=== PATIENT | female | born 1980 | race Caucasian/White ===

== ENCOUNTER 2019-01-19 07:34 | Observation (INO) | payer OTHER ==
[~2019-01-19] VITALS: Ht 162.6 cm; Wt 83.6 kg
[2019-01-19] MEDS ORDERED: PLEASE ENTER ALLERGIES MC SCH (08:00)
[2019-01-19] MEDS ORDERED: BETAMETHASONE 6 MG/ML, 5ML IM ONE ×2 (08:00→08:27)
[2019-01-19 08:05] LABS: CREATININE,URINE RANDOM 52.3 mg/dL
[2019-01-19 08:07] LABS: BASOPHILS # (AUTO) 0.03 x10^3/uL (0-0.1); BASOPHILS % (AUTO) 1 % (0-1); EOSINOPHILS # (AUTO) 0.04 x10^3/uL (0-0.4); EOSINOPHILS % (AUTO) 1 % (1-7); LYMPHOCYTES # (AUTO) 1.16 x10^3/uL (1-3.4); LYMPHOCYTES % (AUTO) 19 % (22-44); MD NO; MEAN CORPUSCULAR HEMOGLOBIN 33.6 pg (27.0-34.8); MEAN CORPUSCULAR HGB CONC 33.8 g/dL (32.4-35.8); MEAN CORPUSCULAR VOLUME 99.5 fL (80-100); MONOCYTES # (AUTO) 0.42 x10^3/uL (0.2-0.8); MONOCYTES % (AUTO) 7 % (2-9); NEUTROPHILS # (AUTO) 4.35 x10^3/uL (1.8-6.8); NEUTROPHILS % (AUTO) 73 % (42-75); PLATELET COUNT 192 x10^3/uL (130-400); RED BLOOD COUNT 3.79 x10^6/uL (3.82-5.3); RED CELL DISTRIBUTION WIDTH 13.8 % (9.6-15.2)
[2019-01-19 08:19] LABS: ALANINE AMINOTRANSFERASE 15 U/L (12-78); ALBUMIN 2.3 g/dL (3.4-5.0); ANION GAP 10 mmol/L (5-15); CALCIUM 8.3 mg/dL (8.5-10.1); CHLORIDE 110 mmol/L (98-107)
[2019-01-19 08:22] LABS: ALKALINE PHOSPHATASE 119 U/L (45-117); BILIRUBIN,TOTAL 0.4 mg/dL (0.2-1.0); TOTAL PROTEIN 5.8 g/dL (6.4-8.2)
[2019-01-19] MEDS ORDERED: ACETAMINOPHEN 325 MG TABLET ONE ×2 (11:13→18:14)
[2019-01-19] MEDS: ACETAMINOPHEN 325 MG TABLET PO PRN ×2 (11:16→18:15)
[2019-01-19 12:43] VITALS: BP 140/99
[2019-01-19] MEDS ORDERED: LABETALOL 100 MG TABLET ONE (13:23)
[2019-01-19] MEDS ORDERED: LABETALOL 100 MG TABLET PO SCH ×3 (14:00→22:00)
[2019-01-19] MEDS ORDERED: CALCIUM CARBONATE 500 MG TAB.CHEW ONE ×2 (14:52→23:06)
[2019-01-19] MEDS: CALCIUM CARBONATE 500 MG TAB.CHEW PO PRN ×2 (14:54→23:07)
[2019-01-19 17:20] VITALS: BP 129/95
[2019-01-19] MEDS: PRENATAL VIT/IRON/FA 1 EACH TABLET HOMEMEDPO SCH (21:00)
[2019-01-19] MEDS ORDERED: LABETALOL 200 MG TABLET ONE (21:44)
[2019-01-19] MEDS: LABETALOL 200 MG TABLET PO SCH (21:49)
[2019-01-19] MEDS ORDERED: DIPHENHYDRAMINE 25 MG CAPSULE PO PRN (22:00)
[2019-01-19] MEDS ORDERED: DIPHENHYDRAMINE 25 MG CAPSULE ONE (22:56)
[2019-01-19 23:01] VITALS: BP 150/98
[2019-01-20] MEDS ORDERED: LABETALOL 200 MG TABLET ONE ×3 (05:57→21:38)
[2019-01-20] MEDS: LABETALOL 200 MG TABLET PO SCH ×3 (06:01→21:39)
[2019-01-20] MEDS ORDERED: BETAMETHASONE 6 MG/ML, 5ML IM SCH (08:30)
[2019-01-20] MEDS: PRENATAL VIT/IRON/FA 1 EACH TABLET HOMEMEDPO SCH (09:00)
[2019-01-20] MEDS ORDERED: DIPHENHYDRAMINE 25 MG CAPSULE ONE ×2 (22:09→22:13)
[2019-01-20] MEDS ORDERED: DIPHENHYDRAMINE 25 MG CAPSULE PO PRN (22:30)
[2019-01-21] MEDS ORDERED: CALCIUM CARBONATE 500 MG TAB.CHEW ONE (02:21)
[2019-01-21] MEDS: CALCIUM CARBONATE 500 MG TAB.CHEW PO PRN (02:27)
[2019-01-21] MEDS ORDERED: LABETALOL 200 MG TABLET ONE (06:39)
[2019-01-21] MEDS: LABETALOL 200 MG TABLET PO SCH (06:40)
[2019-01-21 07:38] LABS: BASOPHILS # (AUTO) 0.02 x10^3/uL (0-0.1); BASOPHILS % (AUTO) 0 % (0-1); EOSINOPHILS % (AUTO) 0 % (1-7); LYMPHOCYTES # (AUTO) 0.95 x10^3/uL (1-3.4); LYMPHOCYTES % (AUTO) 10 % (22-44); MD NO; MEAN CORPUSCULAR HEMOGLOBIN 33.5 pg (27.0-34.8); MEAN CORPUSCULAR HGB CONC 33.5 g/dL (32.4-35.8); MEAN CORPUSCULAR VOLUME 100.1 fL (80-100); MONOCYTES % (AUTO) 7 % (2-9); NEUTROPHILS # (AUTO) 7.95 x10^3/uL (1.8-6.8); NEUTROPHILS % (AUTO) 83 % (42-75); PLATELET COUNT 219 x10^3/uL (130-400); RED BLOOD COUNT 3.61 x10^6/uL (3.82-5.3); RED CELL DISTRIBUTION WIDTH 13.8 % (9.6-15.2)
[2019-01-21 07:40] LABS: ALBUMIN 2.5 g/dL (3.4-5.0); ANION GAP 12 mmol/L (5-15); CALCIUM 8.5 mg/dL (8.5-10.1); CHLORIDE 110 mmol/L (98-107)
[2019-01-21 07:44] LABS: ALANINE AMINOTRANSFERASE 17 U/L (12-78); ALKALINE PHOSPHATASE 119 U/L (45-117); BILIRUBIN, DIRECT < 0.1 mg/dL (0.1-0.2); BILIRUBIN,TOTAL 0.3 mg/dL (0.2-1.0); CREATININE 0.74 mg/dL (0.55-1.02); TOTAL PROTEIN 5.9 g/dL (6.4-8.2)
[2019-01-21] MEDS ORDERED: PREN1TAB60 PO (08:59)
[2019-01-21] MEDS ORDERED: LABE200T6 PO (08:59)
== END 2019-01-21 09:20 | disposition home or self-care (01) ==
LOC: LDOP 07:34 → LDIP 09:38
PROVIDERS: ADMIT Student in an Organized Health Care Education/Training Program; ATTEND Student in an Organized Health Care Education/Training Program
DX: O11.3 Pre-existing hypertension with pre-eclampsia, third trimester (principal); O26.893 Other specified pregnancy related conditions, third trimester; R51 Headache; H53.9 Unspecified visual disturbance; Z3A.34 34 weeks gestation of pregnancy
CPT/HCPCS: 36415; 59025; 80053; 81050; 82248; 82570; 84156; 84550; 85025; 87081; 96372; 99211; G0378; J0702; Q0163; G0463

== ENCOUNTER 2019-02-08 06:28 | Inpatient (IN) | payer OTHER ==
[~2019-02-08] VITALS: Ht 162.6 cm; Wt 85.0 kg
[~2019-02-08 06:28] MED LIST: LABE200T6 PO; NEWBORN KIT ONE; PREN1TAB60 PO
[2019-02-08] MEDS ORDERED: D5%-LACTATED RINGERS 1,000 ML IV SCH (06:36)
[2019-02-08] MEDS ORDERED: OXYTOCIN 30U/ 0.9% NaCL 500ML 500 ML IV PRN ×2 (06:36→06:48)
[2019-02-08] MEDS ORDERED: LACTATED RINGERS 1,000 ML IV SCH ×2 (06:36→08:13)
[2019-02-08] MEDS ORDERED: OXYTOCIN 30U/ 0.9% NaCL 500ML 500 ML IV ONE ×2 (06:36→07:28)
[2019-02-08] MEDS ORDERED: FENTANYL PF 100 MCG/2ML IV PRN (07:00)
[2019-02-08] MEDS ORDERED: TERBUTALINE 1 MG/ML, 1ML IVPush PRN (07:00)
[2019-02-08] MEDS ORDERED: FENTANYL PF 100 MCG/2ML IVPush PRN (07:00)
[2019-02-08 07:19] LABS: BASOPHILS # (AUTO) 0.03 x10^3/uL (0-0.1); BASOPHILS % (AUTO) 0 % (0-1); EOSINOPHILS # (AUTO) 0.06 x10^3/uL (0-0.4); EOSINOPHILS % (AUTO) 1 % (1-7); LYMPHOCYTES # (AUTO) 1.42 x10^3/uL (1-3.4); LYMPHOCYTES % (AUTO) 20 % (22-44); MD NO; MEAN CORPUSCULAR HEMOGLOBIN 33.2 pg (27.0-34.8); MEAN CORPUSCULAR HGB CONC 33.5 g/dL (32.4-35.8); MEAN PLATELET VOLUME 7.7 fL (7.4-10.4); MONOCYTES % (AUTO) 7 % (2-9); NEUTROPHILS # (AUTO) 4.98 x10^3/uL (1.8-6.8); NEUTROPHILS % (AUTO) 71 % (42-75); PLATELET COUNT 207 x10^3/uL (130-400); RED BLOOD COUNT 4.13 x10^6/uL (3.82-5.3); RED CELL DISTRIBUTION WIDTH 14.4 % (9.6-15.2)
[2019-02-08 07:30] LABS: ALBUMIN 2.6 g/dL (3.4-5.0); ANION GAP 8 mmol/L (5-15); CALCIUM 8.7 mg/dL (8.5-10.1); CHLORIDE 110 mmol/L (98-107)
[2019-02-08] MEDS ORDERED: PLEASE ENTER HEIGHT AND WEIGHT MC SCH (07:30)
[2019-02-08 07:33] LABS: ALANINE AMINOTRANSFERASE 19 U/L (12-78); ALKALINE PHOSPHATASE 156 U/L (45-117); BILIRUBIN,TOTAL 0.5 mg/dL (0.2-1.0); CREATININE 0.79 mg/dL (0.55-1.02); TOTAL PROTEIN 6.5 g/dL (6.4-8.2)
[2019-02-08 07:39] LABS: BILIRUBIN, DIRECT < 0.1 mg/dL (0.1-0.2)
[2019-02-08 08:09] LABS: PROTEIN/CREATININE RATIO,URINE < 119 (0-200); TOTAL PROTEIN,URINE RANDOM < 5 mg/dL (0-12)
[2019-02-08] MEDS ORDERED: FENTANYL/BUPIV./NS/PF 250 ML EPIDCONT SCH (08:13)
[2019-02-08] MEDS ORDERED: EPHEDRINE 50 MG/ML, 1ML IVPush PRN (08:30)
[2019-02-08] MEDS ORDERED: LACTATED RINGERS 1,000 ML IVBOLUS PRN (08:30)
[2019-02-08] MEDS ORDERED: FENTANYL PF 500 MCG, BUPIVACAINE/PF 0.5%, 30ML 62.5 ML in SODIUM CHLORIDE 0.9% 177.5 ML EPIDCONT SCH (09:00)
[2019-02-08] MEDS ORDERED: BUPIVACAINE 0.25% ONE (09:21)
[2019-02-08] MEDS ORDERED: FENTANYL PF 100 MCG/2ML ONE ×2 (09:21→19:42)
[2019-02-08] MEDS ORDERED: LIDOCAINE/PF 1.5% EPI 1:200K, 10 ML ONE (09:22)
[2019-02-08] MEDS ORDERED: FENTANYL/BUPIV./NS/PF 250 ML EPIDCONT ONE (09:22)
[2019-02-08] MEDS ORDERED: CALCIUM CARBONATE 500 MG TAB.CHEW ONE ×2 (09:44→12:48)
[2019-02-08] MEDS ORDERED: DIPHENHYDRAMINE 25 MG CAPSULE ONE (12:48)
[2019-02-08] MEDS ORDERED: DIPHENHYDRAMINE 25 MG CAPSULE PO ONE (13:00)
[2019-02-08] MEDS: LABETALOL 100 MG TABLET HOMEMEDPO SCH ×2 (14:30→22:00)
[2019-02-08] MEDS ORDERED: OXYTOCIN 30U/ 0.9% NaCL 500ML 500 ML ONE (16:52)
[2019-02-08] MEDS ORDERED: METOCLOPRAMIDE 5 MG/ML, 2ML ONE (18:41)
[2019-02-08] MEDS ORDERED: SODIUM CITRATE/CITRIC ACID 15 ML UDC ONE (18:41)
[2019-02-08] MEDS ORDERED: NEWBORN KIT ONE (19:23)
[2019-02-08] MEDS ORDERED: TERBUTALINE 1 MG/ML, 1ML ONE (19:47)
[2019-02-08] MEDS ORDERED: IBUPROFEN 600 MG TABLET ONE (20:24)
[2019-02-08] MEDS: IBUPROFEN 600 MG TABLET PO PRN (20:28)
[2019-02-08] MEDS ORDERED: DOCUSATE 100 MG CAPSULE PO PRN (20:30)
[2019-02-08] MEDS ORDERED: METOCLOPRAMIDE 5 MG/ML, 2ML IV PRN (20:30)
[2019-02-08] MEDS ORDERED: OXYcodone/APAP 5/325MG TABLET PO PRN ×2 (20:30)
[2019-02-08] MEDS ORDERED: MISOPROSTOL 200 MCG TABLET PR PRN (20:30)
[2019-02-08] MEDS ORDERED: CARBOPROST TROMETHAMINE 250 MCG/ML, 1ML IM PRN (20:30)
[2019-02-08] MEDS ORDERED: METHYLERGONOVINE 0.2 MG/ML IM PRN (20:30)
[2019-02-08] MEDS ORDERED: BISACODYL 10 MG SUPP PR PRN (20:30)
[2019-02-08] MEDS ORDERED: ONDANSETRON 2MG/ML, 2ML IV PRN (20:30)
[2019-02-08] MEDS: OXYTOCIN 30U/ 0.9% NaCL 500ML 500 ML IV SCH (22:27)
[2019-02-08 22:30] VITALS: BP 129/85
[2019-02-09] VITALS (7 sets, daily range): BP systolic 88–139; BP diastolic 52–89
[2019-02-09 03:25] LABS: MEAN CORPUSCULAR HEMOGLOBIN 33.2 pg (27.0-34.8); MEAN CORPUSCULAR HGB CONC 33.4 g/dL (32.4-35.8); MEAN CORPUSCULAR VOLUME 99.5 fL (80-100); MEAN PLATELET VOLUME 7.7 fL (7.4-10.4); PLATELET COUNT 164 x10^3/uL (130-400); RED BLOOD COUNT 3.08 x10^6/uL (3.82-5.3); RED CELL DISTRIBUTION WIDTH 14.6 % (9.6-15.2)
[2019-02-09 03:44] LABS: BASOPHILS # (AUTO) 0.01 x10^3/uL (0-0.1); BASOPHILS % (AUTO) 0 % (0-1); EOSINOPHILS # (AUTO) 0.03 x10^3/uL (0-0.4); EOSINOPHILS % (AUTO) 0 % (1-7); LYMPHOCYTES # (AUTO) 0.79 x10^3/uL (1-3.4); LYMPHOCYTES % (AUTO) 9 % (22-44); MD SCAN; MONOCYTES # (AUTO) 0.44 x10^3/uL (0.2-0.8); MONOCYTES % (AUTO) 5 % (2-9); NEUTROPHILS % (AUTO) 86 % (42-75)
[2019-02-09] MEDS: LABETALOL 100 MG TABLET HOMEMEDPO SCH ×2 (06:00→14:23)
[2019-02-09] MEDS: OXYTOCIN 30U/ 0.9% NaCL 500ML 500 ML IV SCH ×2 (06:11→16:11)
[2019-02-09] MEDS: IBUPROFEN 600 MG TABLET PO PRN ×2 (08:19→14:18)
[2019-02-09] MEDS: PRENATAL VIT/IRON/FA 1 EACH TABLET PO SCH (09:00)
[2019-02-09] MEDS ORDERED: RHOGAM FROM BLOOD BANK 1 NOTE EA IM/IV ONE (10:30)
[2019-02-09] MEDS: ACETAMINOPHEN 325 MG TABLET PO PRN ×2 (12:58→21:46)
[2019-02-09] MEDS ORDERED: LABETALOL 100 MG TABLET HOMEMEDPO SCH (22:00)
[2019-02-10] VITALS: BP 115/72
[2019-02-10 04:00] VITALS: BP 119/77
[2019-02-10] MEDS: ACETAMINOPHEN 325 MG TABLET PO PRN (06:16)
[2019-02-10] MEDS: LABETALOL 100 MG TABLET PO SCH ×2 (06:16→14:00)
[2019-02-10 07:40] VITALS: BP 110/73
[2019-02-10] MEDS: PRENATAL VIT/IRON/FA 1 EACH TABLET PO SCH (09:00)
[2019-02-10] MEDS: IBUPROFEN 600 MG TABLET PO PRN (10:31)
[2019-02-10] MEDS ORDERED: OXYC-302 PO (12:29)
[2019-02-10] MEDS ORDERED: IBUP-1222 PO (12:29)
[2019-04-08] MEDS ORDERED: MULT1TAB57 PO (16:30)
[2019-04-08] MEDS ORDERED: CALCIUM PO (16:30)
[2019-04-08] MEDS ORDERED: VENL150T PO (16:30)
[2019-04-08] MEDS ORDERED: OMEG1CAP23 PO (16:30)
== END 2019-02-10 15:10 | disposition home or self-care (01) | DRG 807 ==
LOC: LDIP 06:28 → 2NW 22:36
PROVIDERS: ADMIT Student in an Organized Health Care Education/Training Program; ATTEND Student in an Organized Health Care Education/Training Program
PROC: 10907ZC Drainage of Amniotic Fluid, Therapeutic from Products of Conception, Via Natural or Artificial Opening (ICD-10-PCS; principal; 2019-02-08)
PROC: 10E0XZZ Delivery of Products of Conception, External Approach (ICD-10-PCS; 2019-02-08)
PROC: 0KQM0ZZ Repair Perineum Muscle, Open Approach (ICD-10-PCS; 2019-02-08)
PROC: 3E0234Z Introduction of Serum, Toxoid and Vaccine into Muscle, Percutaneous Approach (ICD-10-PCS; 2019-02-08)
PROC: 3E033VJ Introduction of Other Hormone into Peripheral Vein, Percutaneous Approach (ICD-10-PCS; 2019-02-08)
PROC: 3E0R3BZ Introduction of Anesthetic Agent into Spinal Canal, Percutaneous Approach (ICD-10-PCS; 2019-02-08)
PROC: 00HU33Z Insertion of Infusion Device into Spinal Canal, Percutaneous Approach (ICD-10-PCS; 2019-02-08)
DX: O11.4 Pre-existing hypertension with pre-eclampsia, complicating childbirth (principal); Z37.0 Single live birth; O70.1 Second degree perineal laceration during delivery; O26.893 Other specified pregnancy related conditions, third trimester; Z3A.37 37 weeks gestation of pregnancy; Z82.3 Family history of stroke; Z67.41 Type O blood, Rh negative; O72.0 Third-stage hemorrhage
CPT/HCPCS: 36415; J2790; S0020; 80053; 82248; 82570; 82803; 84156; 84550; 85025; 85460; 85461; 86850; 86900; G0378; J3010; J3490; J2001; J2590; J7050; J7120; Q0163

== ENCOUNTER 2020-07-20 11:47 | Outpatient (CLI) | payer OTHER ==
[~2020-07-20 11:47] MED LIST changes: +CALCIUM PO; +IBUP-1222 PO; +MULT1TAB57 PO; -NEWBORN KIT ONE; +OMEG1CAP23 PO; +OXYC-302 PO; +VENL150T PO
== END 2020-07-20 23:59 | disposition home or self-care (01) ==
LOC: CFH 11:47 → RAD 23:59
PROVIDERS: ATTEND Family Medicine
DX: K42.9 Umbilical hernia without obstruction or gangrene (principal)
CPT/HCPCS: 76705

== ENCOUNTER 2020-08-22 14:56 | Emergency (ER) | payer OTHER ==
[~2020-08-22] VITALS: Ht 154.9 cm; Wt 67.1 kg
[~2020-08-22 14:56] MED LIST changes: -OXYC-302 PO; +OXYC1TAB14 PO
[2020-08-22 15:55] LABS: BASOPHILS % (AUTO) 0 % (0-1); EOSINOPHILS % (AUTO) 4 % (1-7); LYMPHOCYTES % (AUTO) 21 % (22-44); MEAN CORPUSCULAR HEMOGLOBIN 33.5 pg (27.0-34.8); MEAN CORPUSCULAR HGB CONC 35.1 g/dL (32.4-35.8); MEAN PLATELET VOLUME 8.1 fL (7.4-10.4); MONOCYTES % (AUTO) 5 % (2-9); NEUTROPHILS % (AUTO) 70 % (42-75); PLATELET COUNT 120 x10^3/uL (130-400); RED BLOOD COUNT 4.32 x10^6/uL (3.82-5.3); RED CELL DISTRIBUTION WIDTH 12.5 % (9.6-15.2)
[2020-08-22 16:02] LABS: ALBUMIN 3.9 g/dL (3.4-5.0); ANION GAP 7 mmol/L (5-15); CALCIUM 8.6 mg/dL (8.5-10.1); CHLORIDE 107 mmol/L (98-107); CREATININE 0.72 mg/dL (0.55-1.02)
--- NOTE | 2020-08-22 16:28 | NUR ---
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
--- NOTE | 2020-08-22 16:37 | NUR ---
TASK RN: PT AMBULATORY TO ROOM FROM [facility]. ALL MONITORS PLACED, CALL LIGHT W/I REACH. VSS WITH BP 151/94. NAD NOTED. GOLDEN PAIN CONTINUES AT 08/22.
--- NOTE | 2020-08-22 16:41 | NUR ---
TASK RN: DAVEY RPT TO PARAMJIT YANG.
--- NOTE | 2020-08-22 17:00 | NUR ---
Piotr ashton in ED - 08/22/20 at 1700 by AKHIL IV ACCESS OBTAINED. ORTHOSTATICS PERFORMED AND DOCUMENTED. LAB AT BEDSIDE FOR BLOOD CULTURES
[2020-08-22 17:12] VITALS: BP 132/94
--- NOTE | 2020-08-22 17:12 | NUR ---
MD AT BEDSIDE FOR ASSESSMENT AND TO DISCUSS PLAN OF CARE
--- NOTE | 2020-08-22 17:13 | NUR ---
PT SITTING UP ON [email or web address]. VSS. NAD. CALL LIGHT W/IN REACH.
[2020-08-22] MEDS ORDERED: ACETAMINOPHEN 500 MG TABLET PO ONE (17:30)
[2020-08-22] MEDS ORDERED: PROMETHAZINE 25MG TABLET PO PRN (17:30)
[2020-08-22 17:57] LABS: MD SCAN
[2020-08-22] MEDS ORDERED: PROMETHAZINE 25MG TABLET ONE (18:13)
[2020-08-22] MEDS ORDERED: ACETAMINOPHEN 500 MG TABLET ONE (18:13)
== END 2020-08-22 18:23 | disposition home or self-care (01) ==
LOC: ED 18:22
DX: R51.9 Headache, unspecified (principal); I10 Essential (primary) hypertension; R42 Dizziness and giddiness; R11.0 Nausea; R94.31 Abnormal electrocardiogram [ECG] [EKG]
CPT/HCPCS: 36415; 71045; 80048; 82040; 83880; 85025; 93005; 99285; Q0169